=== PATIENT | female | born 1985 | race Caucasian/White ===

== ENCOUNTER 2021-04-03 23:16 | Emergency (ER) | payer SELFPAY ==
[2021-04-03] MEDS ORDERED: Sulfameth/Trimethoprim DS 800-160mg TAB ONE (23:35)
[2021-04-03] MEDS ORDERED: Boostrix 0.5 ML (Tdap) VIAL ONE (23:35)
[2021-04-03] MEDS ORDERED: Bacitracin 1 PK ONE (23:35)
[2021-04-03] MEDS ORDERED: Lidocaine 2% 20 ml MDV ONE (23:35)
[2021-04-04] MEDS ORDERED: metFORMIN 500 MG TAB ONE (00:02)
== END 2021-04-04 00:14 | disposition home or self-care (01) ==
LOC: MADERS 23:16
DX: L03.011 Cellulitis of right finger (principal); E11.65 Type 2 diabetes mellitus with hyperglycemia; F17.210 Nicotine dependence, cigarettes, uncomplicated; E11.9 Type 2 diabetes mellitus without complications; I10 Essential (primary) hypertension; J45.909 Unspecified asthma, uncomplicated
CPT/HCPCS: 10060; 36416; 87070; 87077; 87205; 90471; 90715

== ENCOUNTER 2021-09-23 13:43 | Emergency (ER) | payer OTHER ==
[2021-09-23] MEDS ORDERED: Lidocaine 1% w/Epinephrine 1:100K 20 ML VIAL ONE (14:47)
== END 2021-09-23 15:10 | disposition home or self-care (01) ==
LOC: MADERS 13:43
DX: L02.412 Cutaneous abscess of left axilla (principal); E11.9 Type 2 diabetes mellitus without complications; I10 Essential (primary) hypertension; E78.00 Pure hypercholesterolemia, unspecified; J45.909 Unspecified asthma, uncomplicated; F17.210 Nicotine dependence, cigarettes, uncomplicated
CPT/HCPCS: 10060

== ENCOUNTER 2022-01-02 21:52 | Emergency (ER) | payer OTHER ==
[2022-01-02] MEDS ORDERED: Ketorolac Tromethamine 30 MG/ML VIAL ONE (22:39)
== END 2022-01-03 00:13 | disposition home or self-care (01) ==
LOC: MADERS 21:52
DX: M54.50 Low back pain, unspecified (principal); M54.6 Pain in thoracic spine; M62.838 Other muscle spasm; C41.4 Malignant neoplasm of pelvic bones, sacrum and coccyx; I10 Essential (primary) hypertension; E11.9 Type 2 diabetes mellitus without complications; E78.00 Pure hypercholesterolemia, unspecified; J45.909 Unspecified asthma, uncomplicated; F17.210 Nicotine dependence, cigarettes, uncomplicated; V49.49XA Driver injured in collision with other motor vehicles in traffic accident, initial encounter; Y92.481 Parking lot as the place of occurrence of the external cause; Z79.899 Other long term (current) drug therapy
CPT/HCPCS: 72070; 72125; 72170; 96372; J1885

== ENCOUNTER 2022-07-27 16:09 | Emergency (ER) | payer OTHER ==
[2022-07-27] MEDS ORDERED: Prochlorperazine 10 MG/2 ML VIAL ONE (17:20)
[2022-07-27] MEDS ORDERED: diphenhydrAMINE 50 MG/ML VIAL ONE (17:20)
[2022-07-27 17:22] LABS: #Basophils 0.1 thou/uL (0.0-0.2); #Eosinphils 0.1 thou/uL (0.0-0.7); #Lymphocytes 3.5 thou/uL (1.20-3.40); #Monocytes 0.5 thou/uL (0.11-0.59); #Neutrophils 9.9 thou/uL (1.40-6.50); %Basophils 0.6 % (0.0-1.0); %Eosinophils 0.9 % (0.0-10.0); %Monocytes 3.7 % (0.0-10.0); %Neutrophils 69.8 % (42.0-75.0); Hemoglobin 14.4 g/dL (12.0-16.0); Mean Corpuscular HGB CONC 34.1 g/dL (32.0-36.0); Mean Corpuscular Hemoglobin 28.7 pg (27.0-31.0); Mean Corpuscular Volume 84.1 fl (78.0-98.0); Mean Platelet Volume 7.4 fL (7.4-10.4); Platelet Count 339 10x3/uL (130-400); RBC Distribution Width 11.5 % (11.5-14.5); Red Blood Cell (RBC) Count 5.01 mill/uL (4.20-5.40); White Blood Cell (WBC) Count 14.2 10x3/uL (4.8-10.8)
[2022-07-27 17:37] LABS: BHCG - Serum Negative (NEGATIVE); Pregs Control Background? CLEAR/WHITE (CLR/WHITE); Pregs Control Bar Appear? YES (CONTROL BAR)
[2022-07-27 17:42] LABS: ALT (SGPT) 10 U/L (8-55); AST (SGOT) 8 U/L (5-34); Albumin 4.1 g/dL (3.5-5.0); Alkaline Phosphatase 73 U/L (40-110); Anion Gap 15 mmol/L (10-20); BUN (Urea Nitrogen) 15 mg/dL (7.0-18.7); Bilirubin, Total 0.4 mg/dL (0.2-1.2); Calc. Creatinine Clearance 0 mL/min (70-130); Calcium 10.1 mg/dL (7.8-10.44); Carbon Dioxide 23 mmol/L (22-29); Chloride 104 mmol/L (98-107); Estimated GFR 110; Globulin 3.9 g/dL (2.4-3.5); Glucose 152 mg/dL (70-105); Lipase 13 U/L (8-78); Magnesium 1.7 mg/dL (1.6-2.6); Potassium 3.6 mmol/L (3.5-5.1); Sodium 138 mmol/L (136-145)
== END 2022-07-27 20:10 | disposition home or self-care (01) ==
LOC: MADERS 16:09
DX: R51.9 Headache, unspecified (principal); R07.9 Chest pain, unspecified; E11.9 Type 2 diabetes mellitus without complications; I10 Essential (primary) hypertension; J45.909 Unspecified asthma, uncomplicated; F17.210 Nicotine dependence, cigarettes, uncomplicated; E78.00 Pure hypercholesterolemia, unspecified; Z79.84 Long term (current) use of oral hypoglycemic drugs; Z79.899 Other long term (current) drug therapy; Z20.822 Contact with and (suspected) exposure to COVID-19
CPT/HCPCS: 71046; 80053; 83690; 83735; 83880; 84484; 84703; 85025; 85379; 87804; 93005; 94760; 96374; 96375; J0780; J1200; U0003; U0005

== ENCOUNTER 2023-04-03 20:34 | Emergency (ER) | payer OTHER ==
[2023-04-03] MEDS ORDERED: Acetaminophen 500 MG TAB ONE (21:00)
[2023-04-03] MEDS ORDERED: Doxycycline 100 MG CAP ONE (21:00)
== END 2023-04-03 21:10 | disposition home or self-care (01) ==
LOC: MADERS 20:34
DX: S00.86XA Insect bite (nonvenomous) of other part of head, initial encounter (principal); L08.9 Local infection of the skin and subcutaneous tissue, unspecified; I10 Essential (primary) hypertension; E11.9 Type 2 diabetes mellitus without complications; E78.00 Pure hypercholesterolemia, unspecified; E66.9 Obesity, unspecified; F17.210 Nicotine dependence, cigarettes, uncomplicated; W57.XXXA Bitten or stung by nonvenomous insect and other nonvenomous arthropods, initial encounter; Z79.899 Other long term (current) drug therapy; Z79.84 Long term (current) use of oral hypoglycemic drugs
CPT/HCPCS: 99283

== ENCOUNTER 2023-08-17 09:16 | Emergency (ER) | payer OTHER, SELFPAY ==
[2023-08-17] MEDS ORDERED: Ondansetron ODT 4 MG TAB ONE (10:22)
[2023-08-17 10:31] LABS: SARS-CoV-2 NAA Rapid Test Not Detected (NotDetected)
== END 2023-08-17 11:05 | disposition home or self-care (01) ==
LOC: MADERS 09:16
DX: B34.9 Viral infection, unspecified (principal); I10 Essential (primary) hypertension; E11.9 Type 2 diabetes mellitus without complications; E66.9 Obesity, unspecified; E78.00 Pure hypercholesterolemia, unspecified; Z79.899 Other long term (current) drug therapy; Z79.84 Long term (current) use of oral hypoglycemic drugs; F17.210 Nicotine dependence, cigarettes, uncomplicated; Z20.822 Contact with and (suspected) exposure to COVID-19
CPT/HCPCS: 87804; 99283; Q0162; U0002

== ENCOUNTER 2023-12-30 23:02 | Emergency (ER) | payer SELFPAY ==
[2023-12-30] MEDS ORDERED: Sodium Chloride 0.9% 1,000 ML ONE (23:38)
[2023-12-30] MEDS ORDERED: diphenhydrAMINE 25 MG CAP ONE (23:38)
[2023-12-30] MEDS ORDERED: Metoclopramide HCl 10 MG TAB ONE (23:38)
[2023-12-30] MEDS ORDERED: Ketorolac Tromethamine 30 MG (1 mL) VIAL ONE (23:38)
[2023-12-30] MEDS ORDERED: Insulin Regular 300 UNITS/3 ML VIAL ONE (23:39)
== END 2023-12-31 00:51 | disposition home or self-care (01) ==
LOC: MADERS 23:02
DX: R51.9 Headache, unspecified (principal); E11.65 Type 2 diabetes mellitus with hyperglycemia; I10 Essential (primary) hypertension; F17.210 Nicotine dependence, cigarettes, uncomplicated
CPT/HCPCS: 36416; 96361; 96374; J1815; J1885; J7050